=== PATIENT | female | born 2000 | race African-American/Black ===

== ENCOUNTER 2024-10-24 10:09 | Inpatient (IN) | payer OTHER ==
[2024-10-24 10:37] VITALS: BMI 23.2
[2024-10-24] MEDS ORDERED: Misoprostol 200 MCG TAB PR PRN (12:07)
[2024-10-24] MEDS ORDERED: Promethazine HCl 25 MG/ML VIAL IM PRN ×2 (12:07→13:11)
[2024-10-24] MEDS ORDERED: Docusate 100 MG CAP PO PRN (12:07)
[2024-10-24] MEDS ORDERED: Methylergonovine 0.2 MG/ML VIAL IM PRN (12:07)
[2024-10-24] MEDS ORDERED: fentaNYL 50 mcg/mL 1 mL Vial SLOW IVP PRN (12:07)
[2024-10-24] MEDS ORDERED: Tranexamic Acid 1,000 MG/10 ML VIAL IVP PRN (12:07)
[2024-10-24] MEDS ORDERED: Diphenoxylate HCl/Atropine Tablet PO PRN (12:07)
[2024-10-24] MEDS ORDERED: Carboprost 250 MCG/ML AMP IM PRN (12:07)
[2024-10-24] MEDS ORDERED: hydrALAZINE 20 MG/ML VIAL SLOW IVP PRN ×2 (12:07→22:56)
[2024-10-24] MEDS ORDERED: Acetaminophen 500 MG TAB PO PRN (12:07)
[2024-10-24] MEDS ORDERED: Lidocaine 1% (PF) 30 ML VIAL SC PRN (12:07)
[2024-10-24] MEDS ORDERED: Ondansetron PF 4 MG/2 ML Vial IVP PRN ×2 (12:07→13:11)
[2024-10-24] MEDS ORDERED: Oxytocin 30 units/NS 500 ML 500 ML IV SCH ×2 (12:15)
[2024-10-24] MEDS: Lactated Ringer's 1,000 ML IV SCH (12:20)
[2024-10-24 12:42] LABS: Hematocrit 38.3 % (34.9-44.5); Hemoglobin 13.7 g/dL (12.0-15.5); Mean Corpuscular HGB CONC 35.8 g/dL (32.0-36.0); Mean Corpuscular Hemoglobin 31.6 pg (27.0-33.0); Mean Corpuscular Volume 88.5 fL (81.6-98.3); Mean Platelet Volume 10.8 fL (7.4-10.4); Platelet Count 182 10x3/uL (150-450); Red Blood Cell (RBC) Count 4.33 10x6/uL (3.90-5.03); White Blood Cell (WBC) Count 6.6 10x3/uL (3.5-10.5)
[2024-10-24] MEDS: fentaNYL/Ropivacaine Epidural 100 ML ONE (13:04)
[2024-10-24] MEDS ORDERED: Lactated Ringer's 500 ML IV PRN (13:11)
[2024-10-24] MEDS ORDERED: Acetaminophen 325 MG TAB PO PRN (13:11)
[2024-10-24] MEDS ORDERED: Moisturizing Cream (Eucerin) 113 GM JAR TOP PRN (13:11)
[2024-10-24] MEDS ORDERED: diphenhydrAMINE 50 MG/ML VIAL IVP PRN (13:11)
[2024-10-24] MEDS ORDERED: Naloxone HCl 0.4 mg/ml Vial IVP PRN ×2 (13:11)
[2024-10-24] MEDS ORDERED: fentaNYL 2 mcg/Ropivacaine 0.2% Epidural 100 ML CADD EPIDURAL SCH (13:15)
[2024-10-24] MEDS ORDERED: Communication Order-Pharmacy FS SCH (13:15)
[2024-10-24 13:25] LABS: Hep B Surf Ag - L&D Non-Reactive S/CO (NonReactive); Syphilis Antibody Nonreactive (Nonreactive)
[2024-10-24] MEDS: ePHEDrine Sulfate 50 MG/10 ML VIAL SLOW IVP PRN (13:54)
[2024-10-24] MEDS ORDERED: Zolpidem Tartrate 5 MG TAB PO PRN (22:56)
[2024-10-24] MEDS ORDERED: Lanolin Ointment 7 GM TUBE TOP PRN (22:56)
[2024-10-24] MEDS ORDERED: Milk Of Magnesia 30 ML UDCUP PO PRN (22:56)
[2024-10-24] MEDS ORDERED: Bisacodyl 10 MG SUPP PR PRN (22:56)
[2024-10-25] MEDS: Ibuprofen 800 MG TAB PO SCH (01:35)
[2024-10-25] MEDS: Benzocaine-Menthol 82.5 ML CAN TOP PRN (02:21)
[2024-10-25] MEDS: Witch Hazel 100 PAD JAR TOP PRN (02:21)
[2024-10-25 04:56] LABS: #Basophils 0.02 10x3/uL (0.0-0.2); #Eosinophils 0.01 10x3/uL (0.0-0.5); #Monocytes 1.29 10x3/uL (0.0-1.1); #Neutrophils 11.94 10x3/uL (1.5-8.4); %Basophils 0.1 % (0.0-2.0); %Eosinophils 0.1 % (0.0-6.0); %Lymphocytes 10.3 % (18.0-47.0); %Monocytes 8.7 % (0.0-10.0); %Neutrophils 80.4 % (40.0-75.0); Hemoglobin 11.7 g/dL (12.0-15.5); Mean Corpuscular HGB CONC 35.5 g/dL (32.0-36.0); Mean Corpuscular Hemoglobin 31.9 pg (27.0-33.0); Mean Corpuscular Volume 89.9 fL (81.6-98.3); Mean Platelet Volume 10.5 fL (7.4-10.4); Platelet Count 148 10x3/uL (150-450); RBC Distribution Width 12.3 % (11.5-14.5); Red Blood Cell (RBC) Count 3.67 10x6/uL (3.90-5.03); White Blood Cell (WBC) Count 14.9 10x3/uL (3.5-10.5)
[2024-10-25] MEDS: Docusate 100 MG CAP PO SCH (08:51)
[2024-10-25] MEDS: Ferrous Sulfate 325 MG TAB PO SCH (08:52)
[2024-10-25] MEDS: Boostrix 0.5 ML (Tdap) VIAL (>/=7 yrs of age) IM ONE (10:45)
[2024-10-25] MEDS ORDERED: HYDROcodone/Acetaminophen 5/325 mg Tablet PO PRN (16:20)
[2024-10-25] MEDS: HYDROcodone/Acetaminophen 5/325 mg Tablet PO PRN (16:49)
[2024-10-26 08:00] VITALS: BP 114/69; TEMP 97.3
== END 2024-10-26 14:20 | disposition home or self-care (01) | DRG 807 ==
LOC: CSHLD/OP 10:09 → CSHLD 12:34 → CSHPP 10-25 01:50
PROVIDERS: ADMIT Family Medicine; ATTEND Family Medicine
PROC: 10E0XZZ Delivery of Products of Conception, External Approach (ICD-10-PCS; principal; 2024-10-24)
PROC: 0UQMXZZ Repair Vulva, External Approach (ICD-10-PCS; 2024-10-24)
PROC: 10907ZC Drainage of Amniotic Fluid, Therapeutic from Products of Conception, Via Natural or Artificial Opening (ICD-10-PCS; 2024-10-24)
DX: O69.3XX0 Labor and delivery complicated by short cord, not applicable or unspecified (principal); Z37.0 Single live birth; O71.82 Other specified trauma to perineum and vulva; Z3A.38 38 weeks gestation of pregnancy
CPT/HCPCS: 36415; 51701; 51702; 85025; 85027; 86780; 86850; 86900; 86901; 87340; 99285; J7120